=== PATIENT | male | born 1980 | race Caucasian/White ===

== ENCOUNTER 2018-02-19 20:56 | Emergency (ER) | payer SELFPAY ==
[~2018-02-19] VITALS: Ht 180.3 cm; Wt 88.5 kg
[2018-02-19 20:56] VITALS: BP_SYST 127
[2018-02-19] MEDS ORDERED: BACITRACIN 1 GM OINT TP ONE (22:15)
[2018-02-19] MEDS: DIPH-TET-PERTUS Vaccine 0.5 ML VIAL (ADACEL) IM ONE ×2 (22:15→22:17)
[2018-02-19] MEDS ORDERED: IBUPROFEN 600 MG TABLET PO ONE (22:15)
[2018-02-19 22:37] VITALS: BP_SYST 135
== END 2018-02-19 22:35 ==
LOC: SED 20:56
DX: S61.431A Puncture wound without foreign body of right hand, initial encounter (principal); F17.200 Nicotine dependence, unspecified, uncomplicated; W22.8XXA Striking against or struck by other objects, initial encounter; Y93.89 Activity, other specified; Y92.89 Other specified places as the place of occurrence of the external cause; Y99.8 Other external cause status
CPT/HCPCS: 90715; 99283

== ENCOUNTER 2018-02-20 17:35 | Inpatient (IN) | payer MEDICAID ==
[~2018-02-20] VITALS: Ht 180.3 cm; Wt 86.6 kg
[2018-02-20 17:35] VITALS: BP_SYST 127
[2018-02-20] MEDS ORDERED: NACL 0.9% 1,000 ML IV ONE (17:44)
[2018-02-20] MEDS ORDERED: ALBUTEROL SULFATE 0.083% 2.5 MG/3 ML VIAL.NEB IH ONE (17:45)
[2018-02-20] MEDS ORDERED: ASPIRIN 81 MG TAB.CHEW PO ONE (17:45)
[2018-02-20] MEDS ORDERED: ONDANSETRON HCL 4 MG/2 ML VIAL IVP ONE (17:45)
[2018-02-20] MEDS ORDERED: KETOROLAC TROMETHAMINE 30 MG VIAL IVP ONE (17:45)
[2018-02-20] MEDS ORDERED: IPRATROPIUM BROM 0.5 MG/2.5 ML VIAL.NEB (ATROVENT) IH ONE (17:45)
[2018-02-20 18:02] LABS: BASOPHILS % (AUTO) 0.4 % (0.0-2.0); EOSINOPHILS # (AUTO) 0.3 K/uL (0.0-0.4); HEMATOCRIT 44.9 % (36-54); LYMPHOCYTES # (AUTO) 1.7 K/uL (1.0-5.5); LYMPHOCYTES % (AUTO) 23.1 % (20.5-51.5); MEAN CORPUSCULAR HEMOGLOBIN 30 pg (27-31); MEAN CORPUSCULAR HGB CONC 33 % (32-36); MEAN CORPUSCULAR VOLUME 91 fL (79.0-98.0); MONOCYTES # (AUTO) 0.5 K/uL (0.0-1.0); MONOCYTES % (AUTO) 6.2 % (1.7-9.3); NEUTROPHILS # (AUTO) 4.8 K/uL (1.8-7.7); NEUTROPHILS % (AUTO) 66.3 % (40.0-70.0); PLATELET COUNT (AUTO) 337 K/uL (130-430); RED BLOOD CELL COUNT(AUTO) 4.93 MIL/uL (4.2-6.2); RED CELL DISTRIBUTION WIDTH 12.3 % (9.0-15.0); WHITE BLOOD COUNT (AUTO) 7.3 K/uL (4.8-10.8)
[2018-02-20 18:10] LABS: CALCIUM 9.1 mg/dL (8.4-11.0); CREATININE 1.09 mg/dL (0.55-1.30); POTASSIUM 4.1 mmol/L (3.5-5.1)
[2018-02-20 18:16] LABS: ALBUMIN 3.6 g/dL (3.4-4.8); TOTAL BILIRUBIN 0.8 mg/dL (0.0-1.0)
[2018-02-20 19:46] LABS: BILIRUBIN,URINE NEGATIVE (NEGATIVE); BLOOD, URINE NEGATIVE (NEGATIVE); CLARITY/URINE CLEAR (CLEAR); COLOR,URINE YELLOW (YELLOW); GLUCOSE,URINE NEGATIVE (NEGATIVE); KETONES,URINE NEGATIVE (NEGATIVE); LEUKOCYTE ESTERASE ,URINE TRACE (NEGATIVE); NITRITE, URINE NEGATIVE (NEGATIVE); PH,URINE 6.5 (5.0-8.0); PROTEIN URINE NEGATIVE (NEGATIVE); UROBILINOGEN,URINE 0.2 (0.2-1.0)
[2018-02-20 19:54] LABS: RBC,URINE 0-3 /HPF (0-3)
[2018-02-20 19:55] LABS: BACTERIA,URINE FEW /HPF (None Seen)
[2018-02-20 19:56] LABS: MUCUS,URINE 1+ /LPF (None Seen)
[2018-02-20 20:05] LABS: BARBITURATE, URINE NEGATIVE (NEG <=200); BENZODIAZEPINE, URINE NEGATIVE (NEG <=150); CANNABINOID, URINE POSITIVE (NEG <=50); COCAINE, URINE NEGATIVE (NEG <=150); METHAMPHETAMINES SCREEN,URINE POSITIVE (NEG <=500); OPIATE, URINE NEGATIVE (NEG <=100); PHENCYCLIDINE SCREEN,URINE NEGATIVE (NEG <=25); UR TRICYCLIC ANTIDEPRESSANTS NEGATIVE (NEG <=300); URINE AMPHETAMINE POSITIVE (NEG <=500); URINE METHADONE NEGATIVE (NEG <=200); URINE OXYCODONE SCREEN NEGATIVE (NEG <=100); URINE PROPOXYPHENE SCREEN NEGATIVE (NEG <=300)
[2018-02-20 20:20] VITALS: BP_SYST 125
[2018-02-20 20:42] VITALS: BP_SYST 125
[2018-02-20] MEDS ORDERED: MORPHINE 2 MG/ML INJ. SYRINGE IVP PRN (22:30)
[2018-02-20] MEDS ORDERED: ACETAMINOPHEN 325 MG TABLET PO PRN (22:30)
[2018-02-20] MEDS ORDERED: LORazepam 2 MG/ML VIAL IVP PRN (22:30)
[2018-02-20] MEDS ORDERED: ONDANSETRON HCL 4 MG/2 ML VIAL IVP PRN (22:30)
[2018-02-21] VITALS (7 sets, daily range): BP systolic 111–126
[2018-02-21] MEDS: HYDROcodone/ACETAMIN 5-325 MG TAB (NORCO/ VICODIN) PO PRN (00:35)
[2018-02-21] MEDS: NORMAL SALINE 5 ML DISP.SYRIN IVF SCH ×3 (06:26→22:16)
[2018-02-21] MEDS: HYDROcodone/ACETAMIN 10-325 MG TAB PO PRN ×3 (06:30→22:14)
[2018-02-21 07:21] LABS: CALCIUM 8.3 mg/dL (8.4-11.0); CREATININE 0.83 mg/dL (0.55-1.30); POTASSIUM 3.8 mmol/L (3.5-5.1)
[2018-02-21 07:29] LABS: BASOPHILS % (AUTO) 0.7 % (0.0-2.0); EOSINOPHILS # (AUTO) 0.3 K/uL (0.0-0.4); EOSINOPHILS % (AUTO) 5.2 % (0.0-4.0); HEMATOCRIT 39.3 % (36-54); HEMOGLOBIN 13.7 g/dL (14.0-18.0); LYMPHOCYTES # (AUTO) 2.3 K/uL (1.0-5.5); LYMPHOCYTES % (AUTO) 35.5 % (20.5-51.5); MEAN CORPUSCULAR HEMOGLOBIN 32 pg (27-31); MEAN CORPUSCULAR HGB CONC 35 % (32-36); MEAN CORPUSCULAR VOLUME 92 fL (79.0-98.0); MONOCYTES # (AUTO) 0.4 K/uL (0.0-1.0); MONOCYTES % (AUTO) 6.6 % (1.7-9.3); NEUTROPHILS # (AUTO) 3.4 K/uL (1.8-7.7); PLATELET COUNT (AUTO) 267 K/uL (130-430); RED BLOOD CELL COUNT(AUTO) 4.28 MIL/uL (4.2-6.2); RED CELL DISTRIBUTION WIDTH 12.3 % (9.0-15.0); WHITE BLOOD COUNT (AUTO) 6.4 K/uL (4.8-10.8)
[2018-02-21] MEDS: MORPHINE 4 MG/ML INJ. SYRINGE IVP PRN ×2 (12:55→18:48)
[2018-02-21] MEDS: ALBUTEROL SULFATE 0.083% 2.5 MG/3 ML VIAL.NEB INH SCH ×2 (15:32→19:59)
[2018-02-22] MEDS: MORPHINE 4 MG/ML INJ. SYRINGE IVP PRN ×4 (01:11→15:28)
[2018-02-22] MEDS: HYDROcodone/ACETAMIN 10-325 MG TAB PO PRN ×2 (03:42→13:42)
[2018-02-22] MEDS: NORMAL SALINE 5 ML DISP.SYRIN IVF SCH ×2 (06:09→14:02)
[2018-02-22] MEDS: ALBUTEROL SULFATE 0.083% 2.5 MG/3 ML VIAL.NEB INH SCH ×2 (07:00→08:29)
[2018-02-22 07:05] LABS: BASOPHILS # (AUTO) 0.1 K/uL (0.0-0.2); BASOPHILS % (AUTO) 0.8 % (0.0-2.0); EOSINOPHILS # (AUTO) 0.3 K/uL (0.0-0.4); EOSINOPHILS % (AUTO) 4.1 % (0.0-4.0); HEMATOCRIT 41.5 % (36-54); HEMOGLOBIN 14.1 g/dL (14.0-18.0); LYMPHOCYTES # (AUTO) 2.1 K/uL (1.0-5.5); LYMPHOCYTES % (AUTO) 33.3 % (20.5-51.5); MEAN CORPUSCULAR HEMOGLOBIN 31 pg (27-31); MEAN CORPUSCULAR HGB CONC 34 % (32-36); MEAN CORPUSCULAR VOLUME 92 fL (79.0-98.0); MONOCYTES # (AUTO) 0.5 K/uL (0.0-1.0); NEUTROPHILS # (AUTO) 3.5 K/uL (1.8-7.7); NEUTROPHILS % (AUTO) 53.8 % (40.0-70.0); PLATELET COUNT (AUTO) 278 K/uL (130-430); RED BLOOD CELL COUNT(AUTO) 4.52 MIL/uL (4.2-6.2); RED CELL DISTRIBUTION WIDTH 12.1 % (9.0-15.0); WHITE BLOOD COUNT (AUTO) 6.4 K/uL (4.8-10.8)
[2018-02-22 07:40] LABS: CALCIUM 8.7 mg/dL (8.4-11.0); CREATININE 0.89 mg/dL (0.55-1.30); POTASSIUM 3.9 mmol/L (3.5-5.1)
[2018-02-22 08:05] VITALS: BP_SYST 123
[2018-02-22] MEDS: HYDROcodone/ACETAMIN 5-325 MG TAB (NORCO/ VICODIN) PO PRN (09:30)
[2018-02-22 12:00] VITALS: BP_SYST 129
[2018-02-22 13:00] VITALS: BP_SYST 129
== END 2018-02-22 16:51 | DRG 203 ==
LOC: SED 17:35 → EEVIPCON 19:51 → STU 19:51
PROVIDERS: ADMIT Preventive Medicine Preventive Medicine/Occupational Environmental Medicine; ATTEND Preventive Medicine Preventive Medicine/Occupational Environmental Medicine
DX: R07.89 Other chest pain (principal); F15.10 Other stimulant abuse, uncomplicated; J45.909 Unspecified asthma, uncomplicated; R73.9 Hyperglycemia, unspecified; I45.10 Unspecified right bundle-branch block; Z82.49 Family history of ischemic heart disease and other diseases of the circulatory system; Z83.3 Family history of diabetes mellitus
CPT/HCPCS: 36415; 71045; 80048; 80053; 80061; 80307; 81000-TC; 82150-TC; 82550-TC; 83690-TC; 83735-TC; 84100-TC; 84484; 85025; 85610-TC; 85730-TC; 87081; 87086; 93005; 93306; 94640; 94760; 96361; 96374; 96375; 99285; J1885; J2270; J2405